=== PATIENT | female | born 1975 | race African-American/Black ===

== ENCOUNTER 2016-07-04 08:11 | Day surgery (SDC) | payer SELFPAY ==
[~2016-07-04] VITALS: Ht 160 cm; Wt 77.1 kg
[2016-07-04 08:53] LABS: BASOPHILS 0.1 % (0.0-2.0); EOSINOPHILS 1.8 % (0-7); HEMOGLOBIN 13.5 g/dL (12-16); IMMATURE GRANULOCYTES 0.1 % (0-5); LYMPHOCYTES 27.3 % (15-50); MCH 28.6 pg (26.0-34.0); MCHC 32.1 g/dL (31.0-37.0); MEAN PLATELET VOLUME 11.7 fL (7.4-10.4); MONOCYTES 7.6 % (2-11); NEUTROPHILS 63.1 % (40-80); PLATELET COUNT 208 10x3/uL (130-400); RBC 4.72 10x6/uL (4.00-5.40); RDW 12.8 % (11.5-14.5); WBC 9.1 10x3/uL (4.8-10.8)
[2016-07-04 09:14] LABS: ANION GAP 10.5 mmol/L (8-16); CALCIUM 9.3 mg/dL (8.5-10.1); CARBON DIOXIDE 28.5 mmol/L (21.0-32.0); CREATININE - SERUM 0.9 mg/dL (0.6-1.3)
[2016-07-04 10:11] VITALS: BP 110/66; Ht 160 cm; Wt 77.1 kg
[2016-07-04] MEDS ORDERED: HYDROCODONE-APA1 TAB PO (13:49)
--- NOTE | 2016-07-04 17:03 | NUR ---
1615 IV DC WITH CATHER TIP INTACT , WAITING ON RIDE
--- NOTE | 2016-07-19 13:21 | OP ---
PATIENT NAME: SHAUN PEARCE MEDICAL RECORD: [id number] :75 LOCATION:[facility] ADMISSION DATE: SURGEON: ALY LIRA MD DATE OF OPERATION: 07/04/2016 PREOPERATIVE DIAGNOSES: 1. Right breast cyst. 2. Tobacco dependence syndrome. POSTOPERATIVE DIAGNOSES: 1. Right breast cyst. 2. Tobacco dependence syndrome. PROCEDURE: Excision of right breast cyst. SURGEON: Aly Lira MD. REPORT OF PROCEDURE: The patient's right breast was prepped and draped in sterile fashion. On the right nipple areolar complex at about 2 o'clock, there was an open wound with surrounding induration. An ovoid incision was made along the edge of the patient's nipple areolar complex encompassing this opening and extending down through the subcutaneous tissues and retroareolar tissues. This included the entire cyst and a portion of the patient's nipple, which was then inverted. We eventually got the entire cyst cavity removed down to normal fatty tissue. The patient's nipple actually appeared to be extending down into the cyst and may actually have been feeding portion of this cystic cavity. At this point, the nipple was opened, but it was still inverted. I released a lot of fibrinous bands and tissue around the nipple to where it was able to be eviscerated out in normal anatomic position. Then, using a 5-0 Monocryl in a vertical mattress fashion, I sutured together the edges of the nipple where it actually was an anatomical position. The subcutaneous tissues were then reapproximated with a [id number] 3-0 Vicryl to bring some of this retroareolar tissue together. The wound was then irrigated out thoroughly with peroxide and saline solution and care was taken to make sure there was no sign of any active bleeding. The subcutaneous tissues were reapproximated with multiple interrupted 3-0 Vicryls and then infused with 10 mL of 0.25% Marcaine plain. The skin incision was then closed with running subcutaneous 5-0 Monocryl and dressed appropriately. COMPLICATIONS: None. CONDITION: Stable. ANESTHESIA: General endotracheal and local. BLOOD LOSS: Minimal. TRANSINT:[id number] Voice Confirmation ID: [id number] DOCUMENT ID: [id number] OPERATIVE REPORT [id number] SHAUN PEARCE CHRISTIAN MD at 1321 CC: LEONARD EDWARD MD [id number] DICTATION DATE: 07/04/16 1352 [facility] ELECTRONIC: 07/04/16 2103 [facility] 07/04/16 [id number] [place] [address]
== END 2016-07-04 16:30 | disposition home or self-care (01) ==
LOC: D.OPS 08:11
PROVIDERS: Surgery
DX: N60.01 Solitary cyst of right breast (principal); F17.200 Nicotine dependence, unspecified, uncomplicated